=== PATIENT | female | born 1975 | race Two or more races ===

== ENCOUNTER 2017-11-30 11:30 | Emergency (ER) | payer OTHER ==
[~2017-11-30] VITALS: Ht 167.6 cm; Wt 70.3 kg
[2017-11-30 11:54] VITALS: BP 138/81
[2017-11-30 12:11] LABS: Basophils # (auto) 0.1 uL; Eosinophils # (auto) 0.1 uL; White Blood Cell 10.4 10^3/uL (4.4-10.8)
[2017-11-30 12:13] LABS: Eosinophils % (auto) 1.1 % (0.0-7.0); Hematocrit 33.8 % (36.0-46.0); Lymphocytes # (auto) 1.6 uL; Lymphocytes % (auto) 15.5 % (10.0-50.0); Mean Corpuscular Hemoglobin 26.3 pg (28.0-32.0); Mean Corpuscular Hgb Conc. 32.6 g/dL (32.0-36.0); Mean Corpuscular Volume 80.5 fL (80.0-100.0); Monocytes # (auto) 0.5 uL; Monocytes % (auto) 4.3 % (0.0-12.0); Neutrophils # (auto) 8.1 uL; Neutrophils % (auto) 78.1 % (37.0-80.0); Platelet Count (auto) 310 10^3/uL (140-450); Red Blood Cells 4.19 10^6/uL (4.0-5.20); Red Cell Distribution Width 17.7 % (11.8-14.3)
[2017-11-30] MEDS ORDERED: KETOROLAC TROMETH 30 MG/ML 1ML VIAL IV ONE (12:15)
[2017-11-30] MEDS ORDERED: ONDANSETRON HCL 4 MG/2 ML VIAL IV ONE (12:15)
[2017-11-30 12:44] LABS: Albumin 3.9 g/dL (3.4-5.0); Bilirubin, Total 0.3 mg/dL (0.2-1.0); Calcium 8.8 mg/dL (8.5-10.1); Potassium 3.8 mmol/L (3.5-5.1); Total Protein 7.9 g/dL (6.4-8.2)
[2017-11-30] MEDS ORDERED: NALBUPHINE HCL 10 MG/1ml INJECTION ONE (14:27)
[2017-11-30] MEDS ORDERED: NALBUPHINE HCL 10 MG/1ml INJECTION IV ONE (14:30)
[2017-11-30 16:32] LABS: Urine Bacteria FEW /hpf (None Seen); Urine Blood Negative /uL (Negative); Urine Mucus FEW (None Seen); Urine Specific Gravity 1.023 (1.001-1.035); Urine WBC 1 /hpf (0 - 5)
== END 2017-11-30 17:46 | disposition home or self-care (01) ==
LOC: ER 11:30
DX: N83.209 Unspecified ovarian cyst, unspecified side (principal)
CPT/HCPCS: 36415; 74176; 76856; 80053; 81001; 84702; 85025; 94761; 96374; 96375; 99285; J1885; J2300; J2405; 76830

== ENCOUNTER → 2023-01-25 | Outpatient (CLI) | payer OTHER ==
[2023-01-25 10:17] LABS: Follicle Stimulating Hormone 2.35 IU/L (SEE BELOW); Leuteinizing Hormone 4.2 IU/L
== END | disposition home or self-care (01) ==
LOC: LAB 09:00
PROVIDERS: ATTEND Obstetrics & Gynecology
DX: N93.9 Abnormal uterine and vaginal bleeding, unspecified (principal)
CPT/HCPCS: 36415; 82670; 83001; 83002; 84403; 84443

== ENCOUNTER → 2023-02-15 | Outpatient (CLI) | payer OTHER ==
[2023-02-15 14:43] LABS: Basophils # (auto) 0.1 10 ^3/uL (0-0.2); Lymphocytes # (auto) 1.3 10 ^3/uL (0.4-5.4); Mean Corpuscular Hgb Conc. 31.5 g/dL (32.0-36.0); Monocytes # (auto) 0.5 10 ^3/uL (0-1.3); Neutrophils # (auto) 6.1 10 ^3/uL (1.6-8.6); White Blood Cell 8.2 10^3/uL (4.4-10.8)
[2023-02-15 14:44] LABS: Basophils % (auto) 1.2 % (0.0-2.0); Eosinophils # (auto) 0.1 10 ^3/uL (0-0.8); Eosinophils % (auto) 1.8 % (0.0-7.0); Hematocrit 35.5 % (36.0-46.0); Hemoglobin 11.2 g/dL (12.2-16.2); Lymphocytes % (auto) 16.4 % (10.0-50.0); Mean Corpuscular Hemoglobin 26.4 pg (28.0-32.0); Mean Corpuscular Volume 83.7 fL (80.0-100.0); Monocytes % (auto) 6.4 % (0.0-12.0); Neutrophils % (auto) 74.2 % (37.0-80.0); Red Blood Cells 4.24 10^6/uL (4.0-5.20); Red Cell Distribution Width 18.1 % (11.8-14.3)
[2023-02-15 15:45] LABS: Free T3 2.98 pg/mL (2.3-4.2); Free T4 (Free Thyroxine) 1.08 ng/dL (0.89-1.76); T3 Total 1.24 ng/mL (0.60-1.81)
== END | disposition home or self-care (01) ==
LOC: LAB 14:07
PROVIDERS: ATTEND Obstetrics & Gynecology
DX: N95.1 Menopausal and female climacteric states (principal); R53.83 Other fatigue
CPT/HCPCS: 36415; 84439; 84443; 84480; 84481; 85025; 86304; 86376

== ENCOUNTER 2024-08-23 06:02 | Day surgery (SDC) | payer OTHER ==
[2024-08-20 15:22] LABS: Basophils # (auto) 0.1 10 ^3/uL (0-0.2); Basophils % (auto) 1.4 % (0.0-2.0); Eosinophils # (auto) 0.1 10 ^3/uL (0-0.8); Eosinophils % (auto) 1.7 % (0.0-7.0); Hematocrit 40.2 % (36.0-46.0); Hemoglobin 13.2 g/dL (12.2-16.2); Lymphocytes # (auto) 1.6 10 ^3/uL (0.4-5.4); Lymphocytes % (auto) 25.3 % (10.0-50.0); Mean Corpuscular Hemoglobin 30.8 pg (28.0-32.0); Mean Corpuscular Hgb Conc. 32.7 g/dL (32.0-36.0); Mean Corpuscular Volume 94.3 fL (80.0-100.0); Monocytes # (auto) 0.5 10 ^3/uL (0-1.3); Monocytes % (auto) 7.7 % (0.0-12.0); Neutrophils # (auto) 4.2 10 ^3/uL (1.6-8.6); Neutrophils % (auto) 63.9 % (37.0-80.0); Nucleated Red Blood Cells % 0.1 %; Platelet Count (auto) 216 10^3/uL (140-450); Red Blood Cells 4.26 10^6/uL (4.0-5.20); White Blood Cell 6.5 10^3/uL (4.4-10.8)
[2024-08-20 15:23] LABS: Urine Amorphous Crystal FEW /hpf (None Seen); Urine Bacteria FEW /hpf (None Seen); Urine Blood Negative /uL (Negative); Urine Clarity Clear (Clear); Urine Color Colorless (Yellow); Urine Protein, UAD Negative (Negative); Urine Specific Gravity 1.007 (1.001-1.035); Urine Urobilinogen Normal (Negative); Urine WBC 1 /hpf (0 - 5); Urine pH 7.5 (5.0-9.0)
[2024-08-20 15:50] LABS: INR 1.01 (0.9-1.15); Partial Thromboplastin Time 28.2 SEC (24.5-34.5); Prothrombin Time 10.7 sec (9.3-11.8)
[2024-08-20 15:58] LABS: Alanine Aminotransferase 11 U/L (7-40); Albumin 4.4 g/dL (3.2-4.8); Alkaline Phosphatase 117 U/L (46-116); Anion Gap 4 (5-15); Aspartate Aminotransferase 10 U/L (13-40); BUN/Creatinine Ratio 13.3 (10.0-20.0); Blood Urea Nitrogen 8 mg/dL (9-23); Calcium 10.6 mg/dL (8.7-10.4); Carbon Dioxide 29 mmol/L (20-31); Chloride 109 mmol/L (98-107); Glucose 78 mg/dL (74-106); Potassium 4.3 mmol/L (3.5-5.1); Sodium 142 mmol/L (136-145)
[2024-08-20 15:59] LABS: Bilirubin, Total 0.3 mg/dL (0.2-1.0); Total Protein 7.1 g/dL (5.7-8.2)
--- NOTE | 2024-08-20 16:17 | DVHHP ---
CHIEF COMPLAINT: Desires endometrial ablation secondary to abnormal uterine bleeding. HISTORY OF PRESENT ILLNESS: The patient is a 49-year-old 3, para 2-0-1-2, admitted for D and C, hysteroscopy, endometrial ablation. The patient is not menopausal. Her uterus measures 7.7 x 6 x 4 cm. She continues having abnormal bleeding. PAST MEDICAL HISTORY: None. PAST SURGICAL HISTORY: Cyst removed from ovary, D and C. SOCIAL HISTORY: None. FAMILY HISTORY: None. ALLERGIES: No known drug allergies. REVIEW OF SYSTEMS: Consistent with HPI. PHYSICAL EXAMINATION: VITAL SIGNS: Stable, afebrile. HEENT: Within normal limits. CARDIOVASCULAR: Regular rate and rhythm. LUNGS: Clear to auscultation. BREASTS: Symmetrical. No masses. ABDOMEN: Soft, nontender. PELVIC: External genitalia within normal limits. Vagina normal. Cervix grossly normal. Uterus 8 weeks' size. Adnexa, non palpable. EXTREMITIES: No clubbing, cyanosis or edema. IMPRESSION: Abnormal uterine bleeding. PLAN: D and C, hysteroscopy, endometrial ablation. Informed consent obtained. Risks, complication of surgery including infection, bleeding, hematoma formation, injury to bowel, bladder, surrounding organs, possibility of DVT, pulmonary embolism, risk of anesthesia discussed with the patient. Options reviewed. All questions answered. The patient fully understands. She wishes to proceed with planned procedure. DO YAMILETH Pollack TID: [id number] RECEIPT: [id number]
[~2024-08-23] VITALS: Ht 167.6 cm; Wt 68.0 kg
[~2024-08-23 06:02] MED LIST: FERR28TA4 PO; SUMA100T15 PO
[2024-08-23] MEDS ORDERED: ceFAZolin 2 GM/D5W100ml 100 ML IV ONE (06:35)
[2024-08-23] MEDS ORDERED: HYDR-4072 PO (06:53)
[2024-08-23] MEDS ORDERED: ZOFR4T PO (06:53)
[2024-08-23] MEDS ORDERED: MEPERIDINE HCL (25 MG/ML) 1ML VIAL ONE (07:23)
[2024-08-23] MEDS ORDERED: MIDAZOLAM HCL 2MG/2ML 2ml VIAL (1mg/ml) ONE (07:24)
[2024-08-23] MEDS ORDERED: DexAMETHasone SOD PHOS 10MG/1ML VIAL INJ ONE (07:25)
[2024-08-23] MEDS ORDERED: PROPOFOL 10 MG/ML 20 ML IV ONE (07:25)
[2024-08-23] MEDS ORDERED: fentaNYL CITRATE 100 MCG/2 ML VL ONE (07:29)
[2024-08-23 08:02] VITALS: RESP 18; TEMP 97.5; O2SAT 100
[2024-08-23] MEDS: ONDANSETRON HCL 4 MG/2 ML VIAL IV ONE (08:13)
[2024-08-23] MEDS ORDERED: ONDANSETRON HCL 4 MG/2 ML VIAL IV PRN (08:15)
[2024-08-23] MEDS ORDERED: HYDROmorphone HCL 2 MG/ML VL/or syr IV PRN (08:15)
[2024-08-23] MEDS ORDERED: hydrALAZINE HCL 20 MG/ML VL IV PRN (08:15)
[2024-08-23] MEDS ORDERED: MIDAZOLAM HCL 2MG/2ML 2ml VIAL (1mg/ml) IV PRN (08:15)
[2024-08-23] MEDS ORDERED: ONDANSETRON HCL 4 MG/2 ML VIAL ONE (08:15)
[2024-08-23] MEDS ORDERED: LACTATED RINGER'S 1,000 ML IV SCH (08:15)
[2024-08-23] MEDS ORDERED: ePHEDrine SULFATE 50 MG/ML AMP IV PRN (08:15)
[2024-08-23] MEDS: KETOROLAC TROMETH 30 MG/ML 1ML VIAL IV ONE (08:29)
[2024-08-23] MEDS: MORPHINE SULFATE 4 MG/ML SYR/VIAL IV PRN (09:02)
[2024-08-23 09:32] VITALS: BP 126/78; PULSE 63; RESP 13; O2SAT 98
--- NOTE | 2024-08-23 13:59 | DVHDS2 ---
Physician Discharge Progress N Final Diagnosis: aub Operations or Procedures: Operations or Procedures d and c,hysteroscopy Condition on Discharge: Good Disposition: Home Discharge Instructions: Diet: Regular Activity: Light activity Follow Up/Referral: mon 9 am Medications: zofran and motrin Follow Up Care: Specialist: mon Discharge Statement: "Patient was advised to return to the ER or call 911 if any headaches, dizziness, shortness of breath, chest pain, abdominal pain, bleeding, fevers, or worsening of medical condition. Patient was counseled about treatment plan, medications, possible side effects, patientverbalized understanding. All questions were answered to the best of my ability. This discharge took greater then 30 minutes in planning, reviewing documentation, counseling the patient, and discussing with other team members." RYAN JAQUEZ DO Aug 23, 2024 13:59
--- NOTE | 2024-08-23 14:00 | POSTOP ---
Post-Operative Note Post-Operative Note Preop Diagnosis aub Postop Diagnosis: aub Operation performed d and c,hysteroscopy Specimen emc Anesthesia: Mac Anesthesiologist: shreyas Blood Loss(fluid mgmt) 20ml Surgeon Ryan Singletary Implant na Complications & Mgmt none Date 08/23/24 Time 13:59 RYAN SINGLETARY DO Aug 23, 2024 14:00
--- NOTE | 2024-08-23 14:01 | DVHOP2 ---
Operative Report DATE OF OPERATION: 08/23/24 PREOPERATIVE DIAGNOSES: Abnormal uterine bleeding. POSTOPERATIVE DIAGNOSES: Abnormal uterine bleeding. SURGEON: Ryan Singletary D.O. ANESTHESIOLOGIST: wendi TYPE OF ANESTHESIA : MAC. CONSENT: The patient was informed of the risks and benefits of the procedure. The patient was informed of the risks and benefits of the procedure. These include but are not limited to , complications of anesthesia, postoperative infection, incomplete relief of symptoms, recurrence of symptoms, damage to blood vessels, nerves and tendons, deep venous thrombosis, pulmonary embolism and possible need for repeat surgery in the future. FINDINGS: Cervix is normal. Uterus is 9 weeks size. Adnexa is nonpalpable. Hysteroscopy examination revealed no evidence of polyps or myomas. SPECIMEN: EMC COMPLICATIONS: None BLOOD PRODUCTS USED: None PROCEDURES: Dilation and curettage, hysteroscopy, and endometrial ablation. PROCEDURE IN DETAIL: The patient was taken to the operating room, where he was placed under MAC anesthesia. She was then prepped and draped in the usual steri le manner in dorsal lithotomy position. Bladder was emptied using a straight catheter. Examination under anesthesia revealed the above findings. A weighted speculum was placed in the vagina. Anterior lip of the cervix was grasped using single tooth tenaculum. Cervix was dilated. Uterus was sounded to 9 cm. Hysteroscope was advanced. Survey of uterine cavity revealed no evidence of polyp or myoma. Hysteroscope was removed. Endometrial carotene was performed. Endometrial ablation procedure was then performed successfully. Post ablation hysteroscopic findings was consistent with excellent ablation of the entire cavity. No bleeding was noted. All the instruments were removed from the vagina and cervix. Patient tolerated procedure well. She was then taken to the recovery room in stable condition. CONDITION: Stable ESTIMATED BLOOD LOSS: 50 mL RYAN SINGLETARY DO Aug 23, 2024 14:01
== END 2024-08-23 10:12 | disposition home or self-care (01) ==
LOC: SUR 06:02
PROVIDERS: ATTEND Obstetrics & Gynecology
DX: N93.9 Abnormal uterine and vaginal bleeding, unspecified (principal); G43.909 Migraine, unspecified, not intractable, without status migrainosus; Z98.890 Other specified postprocedural states
CPT/HCPCS: 36415; 58563; 80053; 81001; 81025; 84702; 85025; 85610; 85730; 86850; 86900; 86901; 88305; J1100; J1885; J2175; J2250; J2270; J2405; J2704; J3010